=== PATIENT | male | born 1935 | race Caucasian/White ===

== ENCOUNTER → 2017-03-31 | Outpatient (CLI) | payer OTHER ==
[~2017-03-31] MED LIST: ACT35 PO; CARB10TA4 PO; CHONDROITIN PO; CLB200 PO; CLTP PO; CMD5 PO; FENO145T26 PO; FLM4 PO; GLUCOSAMINE PO; LANS30CA12 PO; METO50TA16 PO; NIAC500T11 PO; OTC LAXATIVE PO; ROPI5TAB PO; SENN-61 PO; SIMV40TA2 PO; SYN100 PO
[2017-03-31 17:38] LABS: URINE APPEARANCE CLOUDY (CLEAR); URINE BILIRUBIN NEG (NEG); URINE COLOR YELLOW; URINE EPITHELIAL CELL AUTO >30 /lpf (0-5); URINE NITRITE NEG (NEG); URINE PH 5.5 (4.5-7.5); URINE SPECIFIC GRAVITY 1.024 (1.000-1.030); UROBILINOGEN NEG (NEG)
[2017-03-31 17:46] LABS: REVIEW REQ? YES
[2017-03-31 17:47] LABS: MANUAL MICROSCOPIC REQUIRED? NO
[2017-03-31 18:30] LABS: URINE MUCUS PRESENT (NONE PRSENT)
== END | disposition home or self-care (01) ==
LOC: C.LABMFLN 11:49
PROVIDERS: ATTEND Family Medicine
DX: R35.0 Frequency of micturition (principal)

== ENCOUNTER → 2017-04-02 | Outpatient (CLI) | payer OTHER ==
[2017-04-02 19:23] LABS: BASO % 0.2 %; BASO ABS # 0.01 K/uL (0-0.2); EOS % 4.3 %; HEMATOCRIT 38.5 % (42-52); IG% 0.2 %; LYMPH ABS # 1.57 K/uL (1.2-3.4); MEAN CELL VOLUME 111.9 fL (80-100); MEAN CORPUSCULAR HEMOGLOBIN 34.3 pg (25-34); MEAN CORPUSCULAR HGB CONC 30.6 g/dl (32-36); MEAN PLATELET VOLUME 9.5 fL (7.4-10.4); MONO % 10.9 %; NEUT % 58.4 %; PLATELET COUNT 174 K/uL (130-400); RED BLOOD COUNT 3.44 M/uL (4.7-6.1); WHITE BLOOD COUNT 6.03 K/uL (4.8-10.8)
[2017-04-02 19:33] LABS: BLOOD UREA NITROGEN 23 mg/dl (7-18); BUN/CREATININE RATIO 21.1 (10-20); CALCIUM 8.6 mg/dl (8.5-10.1); CARBON DIOXIDE 33 mmol/L (21-32); CHLORIDE 112 mmol/L (98-107); GLUCOSE 102 mg/dl (70-99); POTASSIUM 3.6 mmol/L (3.5-5.1); SODIUM 150 mmol/L (136-145)
[2017-04-02 21:09] LABS: COMPLETE YES
== END | disposition home or self-care (01) ==
LOC: C.LABMFLN 12:21
PROVIDERS: ATTEND Family Medicine
DX: I95.9 Hypotension, unspecified (principal)